=== PATIENT | female | born 1985 | race Caucasian/White ===

== ENCOUNTER 2018-08-30 15:26 | Inpatient (IN) | payer MEDICAID ==
[~2018-08-30] VITALS: Ht 172.7 cm; Wt 103.6 kg
[2018-08-30] MEDS: OXYTOCIN 30U/ 0.9% NaCL 500ML 500 ML IV SCH ×2 (15:53→21:18)
[2018-08-30] MEDS ORDERED: LACTATED RINGERS 1,000 ML IVBOLUS ONE (16:00)
[2018-08-30] MEDS: LACTATED RINGERS 1,000 ML IV SCH ×6 (16:00→23:53)
[2018-08-30] MEDS ORDERED: SODIUM CITRATE/CITRIC ACID 30 ML UDC PO ONE (16:00)
[2018-08-30] MEDS ORDERED: ONDANSETRON 2MG/ML, 2ML IVPush ONE (16:00)
[2018-08-30] MEDS ORDERED: METOCLOPRAMIDE 5 MG/ML, 2ML IV ONE (16:00)
[2018-08-30] MEDS ORDERED: NEWBORN KIT ONE (16:19)
[2018-08-30] MEDS ORDERED: METOCLOPRAMIDE 5 MG/ML, 2ML ONE (16:19)
[2018-08-30] MEDS ORDERED: SODIUM CITRATE/CITRIC ACID 30 ML UDC ONE (16:19)
[2018-08-30 16:41] LABS: BASOPHILS % (AUTO) 0 % (0-1); EOSINOPHILS # (AUTO) 0.06 x10^3/uL (0-0.4); EOSINOPHILS % (AUTO) 1 % (1-7); LYMPHOCYTES # (AUTO) 1.06 x10^3/uL (1-3.4); LYMPHOCYTES % (AUTO) 10 % (22-44); MD NO; MEAN CORPUSCULAR HEMOGLOBIN 25.7 pg (27.0-34.8); MEAN CORPUSCULAR HGB CONC 32.5 g/dL (32.4-35.8); MEAN CORPUSCULAR VOLUME 79.1 fL (80-100); MEAN PLATELET VOLUME 10.8 fL (7.4-10.4); MONOCYTES # (AUTO) 0.49 x10^3/uL (0.2-0.8); MONOCYTES % (AUTO) 5 % (2-9); NEUTROPHILS # (AUTO) 8.71 x10^3/uL (1.8-6.8); NEUTROPHILS % (AUTO) 84 % (42-75); PLATELET COUNT 166 x10^3/uL (130-400); RED BLOOD COUNT 3.82 x10^6/uL (3.82-5.3); RED CELL DISTRIBUTION WIDTH 16.4 % (9.6-15.2)
[2018-08-30] MEDS ORDERED: SODIUM CHLORIDE 0.9% PF 10ML ONE ×2 (16:45)
[2018-08-30] MEDS ORDERED: CEFAZOLIN 1,000 MG ONE (16:45)
[2018-08-30] MEDS ORDERED: OXYTOCIN 10 UNITS/ML, 1ML ONE (16:45)
[2018-08-30] MEDS ORDERED: HYDROmorphone 2 MG/ML, 1ML ONE (16:45)
[2018-08-30] MEDS ORDERED: FENTANYL PF 100 MCG/2ML ONE (16:45)
[2018-08-30] MEDS ORDERED: ONDANSETRON 2MG/ML, 2ML ONE (16:45)
[2018-08-30 18:04] LABS: MICROSCOPIC NOT IND
[2018-08-30 18:07] LABS: AMPHETAMINE SCREEN, URINE Positive (Negative); BARBITURATE SCREEN, URINE Negative (Negative); BENZODIAZEPINE SCREEN, URINE Negative (Negative); CANNABINOID SCREEN, URINE Negative (Negative); COCAINE SCREEN, URINE Negative (Negative); METHADONE SCREEN, URINE Negative (Negative); OPIATE SCREEN, URINE Negative (Negative)
[2018-08-30] MEDS ORDERED: OXYTOCIN 30U/ 0.9% NaCL 500ML 500 ML ONE (18:42)
[2018-08-30 19:24] LABS: BASOPHILS # (AUTO) 0.01 x10^3/uL (0-0.1); BASOPHILS % (AUTO) 0 % (0-1); EOSINOPHILS # (AUTO) 0.05 x10^3/uL (0-0.4); EOSINOPHILS % (AUTO) 0 % (1-7); LYMPHOCYTES # (AUTO) 0.84 x10^3/uL (1-3.4); LYMPHOCYTES % (AUTO) 6 % (22-44); MD NO; MEAN CORPUSCULAR HEMOGLOBIN 25.7 pg (27.0-34.8); MEAN CORPUSCULAR HGB CONC 32.5 g/dL (32.4-35.8); MEAN CORPUSCULAR VOLUME 79.2 fL (80-100); MONOCYTES # (AUTO) 0.56 x10^3/uL (0.2-0.8); MONOCYTES % (AUTO) 4 % (2-9); NEUTROPHILS # (AUTO) 11.55 x10^3/uL (1.8-6.8); NEUTROPHILS % (AUTO) 89 % (42-75); PLATELET COUNT 133 x10^3/uL (130-400); RED BLOOD COUNT 3.24 x10^6/uL (3.82-5.3); RED CELL DISTRIBUTION WIDTH 16.5 % (9.6-15.2)
[2018-08-30 20:30] VITALS: BP 123/80
[2018-08-30] MEDS ORDERED: HYDROcodone/APAP 5/325 TABLET PO PRN ×2 (21:30)
[2018-08-30] MEDS ORDERED: BISACODYL 10 MG SUPP PR PRN (21:30)
[2018-08-30] MEDS ORDERED: ACETAMINOPHEN 325 MG TABLET PO PRN (21:30)
[2018-08-30] MEDS ORDERED: MEPERIDINE/PF 50 MG/ML IM PRN (21:30)
[2018-08-30] MEDS ORDERED: ONDANSETRON 2MG/ML, 2ML IV PRN (21:30)
[2018-08-30] MEDS ORDERED: OXYcodone/APAP 5/325MG TABLET ONE (21:40)
[2018-08-30] MEDS: OXYcodone/APAP 5/325MG TABLET PO PRN (21:42)
[2018-08-31 00:03] VITALS: BP 146/83
[2018-08-31] MEDS: OXYTOCIN 30U/ 0.9% NaCL 500ML 500 ML IV SCH ×5 (01:53→21:53)
[2018-08-31] MEDS: DOCUSATE 100 MG CAPSULE PO PRN ×3 (02:00→21:07)
[2018-08-31] MEDS: OXYcodone/APAP 5/325MG TABLET PO PRN ×4 (02:00→21:06)
[2018-08-31 04:15] VITALS: BP 130/80
[2018-08-31 05:10] LABS: MEAN CORPUSCULAR HEMOGLOBIN 25.8 pg (27.0-34.8); MEAN CORPUSCULAR HGB CONC 32.9 g/dL (32.4-35.8); MEAN CORPUSCULAR VOLUME 78.7 fL (80-100); MEAN PLATELET VOLUME 10.3 fL (7.4-10.4); PLATELET COUNT 115 x10^3/uL (130-400); RED BLOOD COUNT 2.81 x10^6/uL (3.82-5.3); RED CELL DISTRIBUTION WIDTH 16.6 % (9.6-15.2)
[2018-08-31] MEDS: LACTATED RINGERS 1,000 ML IV SCH ×11 (05:18→23:53)
[2018-08-31 06:13] LABS: BASOPHILS # (AUTO) 0.01 x10^3/uL (0-0.1); BASOPHILS % (AUTO) 0 % (0-1); EOSINOPHILS # (AUTO) 0.03 x10^3/uL (0-0.4); EOSINOPHILS % (AUTO) 0 % (1-7); LYMPHOCYTES # (AUTO) 0.87 x10^3/uL (1-3.4); LYMPHOCYTES % (AUTO) 13 % (22-44); MD SCAN; MONOCYTES # (AUTO) 0.39 x10^3/uL (0.2-0.8); MONOCYTES % (AUTO) 6 % (2-9); NEUTROPHILS # (AUTO) 5.36 x10^3/uL (1.8-6.8); NEUTROPHILS % (AUTO) 81 % (42-75)
[2018-08-31] MEDS: IBUPROFEN 600 MG TABLET PO PRN ×3 (08:19→23:38)
[2018-08-31] MEDS: PRENATAL VIT/IRON/FA 1 EACH TABLET PO SCH (08:21)
[2018-08-31 08:22] VITALS: BP 137/89
[2018-08-31 12:30] VITALS: BP 138/85
[2018-08-31 16:30] VITALS: BP 119/80
[2018-08-31] MEDS: NICOTINE 21 MG/24 HR PATCH.TD24 TD SCH (18:30)
[2018-08-31] MEDS ORDERED: ALPRazolam 1MG TABLET PO PRN (18:30)
[2018-08-31 20:30] VITALS: BP 142/85
[2018-09-01 00:10] VITALS: BP 144/90
[2018-09-01] MEDS: OXYTOCIN 30U/ 0.9% NaCL 500ML 500 ML IV SCH ×5 (03:18→23:18)
[2018-09-01] MEDS: LACTATED RINGERS 1,000 ML IV SCH ×10 (03:18→23:18)
[2018-09-01 04:00] VITALS: BP 121/82
[2018-09-01] MEDS: OXYcodone/APAP 5/325MG TABLET PO PRN ×4 (04:09→20:14)
[2018-09-01] MEDS: DOCUSATE 100 MG CAPSULE PO PRN ×2 (07:09→20:14)
[2018-09-01] MEDS: IBUPROFEN 600 MG TABLET PO PRN ×2 (07:09→20:14)
[2018-09-01] MEDS: PRENATAL VIT/IRON/FA 1 EACH TABLET PO SCH (07:11)
[2018-09-01 07:14] VITALS: BP 144/84
[2018-09-01] MEDS: NICOTINE 21 MG/24 HR PATCH.TD24 TD SCH (18:30)
[2018-09-01 20:00] VITALS: BP 150/93
[2018-09-02] MEDS: IBUPROFEN 600 MG TABLET PO PRN ×3 (02:15→14:05)
[2018-09-02] MEDS: OXYcodone/APAP 5/325MG TABLET PO PRN ×3 (02:15→14:05)
[2018-09-02 08:22] VITALS: BP 146/79
[2018-09-02] MEDS: DOCUSATE 100 MG CAPSULE PO PRN (08:26)
[2018-09-02] MEDS: PRENATAL VIT/IRON/FA 1 EACH TABLET PO SCH (08:26)
[2018-09-02] MEDS ORDERED: niFEDipine ER 30 MG TABLET.ER PO SCH (09:00)
[2018-09-02] MEDS ORDERED: IBUP-1222 PO (09:08)
[2018-09-02] MEDS ORDERED: OXYC-302 PO (09:08)
[2018-09-02] MEDS ORDERED: NIFE30TA2 PO (09:09)
[2018-09-02] MEDS: LACTATED RINGERS 1,000 ML IV SCH (09:18)
[2018-09-02] MEDS: OXYTOCIN 30U/ 0.9% NaCL 500ML 500 ML IV SCH (09:18)
== END 2018-09-02 15:40 | disposition home or self-care (01) | DRG 786 ==
LOC: LDOP 15:26 → LDIP 16:04 → 2NW 20:03
PROVIDERS: ADMIT Obstetrics & Gynecology Gynecology; ATTEND Obstetrics & Gynecology Gynecology
PROC: 10D00Z1 Extraction of Products of Conception, Low, Open Approach (ICD-10-PCS; principal; 2018-08-31)
DX: O34.211 Maternal care for low transverse scar from previous cesarean delivery (principal); O45.93 Premature separation of placenta, unspecified, third trimester; O99.324 Drug use complicating childbirth; O99.214 Obesity complicating childbirth; O13.4 Gestational [pregnancy-induced] hypertension without significant proteinuria, complicating childbirth; F15.10 Other stimulant abuse, uncomplicated; E66.9 Obesity, unspecified; F12.90 Cannabis use, unspecified, uncomplicated; O99.334 Smoking (tobacco) complicating childbirth; F17.210 Nicotine dependence, cigarettes, uncomplicated; O90.81 Anemia of the puerperium; D64.9 Anemia, unspecified; Z3A.38 38 weeks gestation of pregnancy; Z68.34 Body mass index [BMI] 34.0-34.9, adult; Z37.0 Single live birth
CPT/HCPCS: 36415; 76805; 80307; 81003; 82803; 85025; 86592; 86762; 86850; 86900; 87086; 87340; 87806; 88307; G0378; J0690; J1170; J2405; J3010; G0475; J2590; J2765; J7120

== ENCOUNTER 2018-09-16 14:32 | Emergency (ER) | payer MEDICAID ==
[~2018-09-16] VITALS: Ht 172.7 cm; Wt 105.0 kg
[~2018-09-16 14:32] MED LIST: IBUP-1222 PO; NIFE30TA2 PO; OXYC-302 PO
[2018-09-16 14:59] VITALS: BP 146/89
[2018-09-16 15:22] LABS: BASOPHILS # (AUTO) 0.02 x10^3/uL (0-0.1); BASOPHILS % (AUTO) 0 % (0-1); EOSINOPHILS # (AUTO) 0.12 x10^3/uL (0-0.4); EOSINOPHILS % (AUTO) 2 % (1-7); LYMPHOCYTES % (AUTO) 15 % (22-44); MD NO; MEAN CORPUSCULAR HEMOGLOBIN 25.5 pg (27.0-34.8); MEAN CORPUSCULAR HGB CONC 32.2 g/dL (32.4-35.8); MEAN CORPUSCULAR VOLUME 79.2 fL (80-100); MEAN PLATELET VOLUME 8.1 fL (7.4-10.4); MONOCYTES # (AUTO) 0.32 x10^3/uL (0.2-0.8); MONOCYTES % (AUTO) 5 % (2-9); NEUTROPHILS # (AUTO) 5.33 x10^3/uL (1.8-6.8); NEUTROPHILS % (AUTO) 78 % (42-75); PLATELET COUNT 306 x10^3/uL (130-400); RED BLOOD COUNT 3.93 x10^6/uL (3.82-5.3); RED CELL DISTRIBUTION WIDTH 17.7 % (9.6-15.2)
[2018-09-16 15:30] LABS: ALANINE AMINOTRANSFERASE 21 U/L (12-78); ALBUMIN 3.5 g/dL (3.4-5.0); ANION GAP 6 mmol/L (5-15); CHLORIDE 108 mmol/L (98-107); CREATININE 0.82 mg/dL (0.55-1.02)
[2018-09-16 15:32] LABS: ALKALINE PHOSPHATASE 134 U/L (45-117); BILIRUBIN,TOTAL 0.2 mg/dL (0.2-1.0); TOTAL PROTEIN 7.3 g/dL (6.4-8.2)
== END 2018-09-16 16:03 | disposition home or self-care (01) ==
LOC: ED 15:57
DX: O99.89 Other specified diseases and conditions complicating pregnancy, childbirth and the puerperium (principal); L03.311 Cellulitis of abdominal wall; D64.9 Anemia, unspecified; S01.91XD Laceration without foreign body of unspecified part of head, subsequent encounter; F17.200 Nicotine dependence, unspecified, uncomplicated; X58.XXXD Exposure to other specified factors, subsequent encounter
CPT/HCPCS: 36415; 80053; 85025; 99283